=== PATIENT | male | born 1990 | race Caucasian/White ===

== ENCOUNTER 2020-08-31 20:35 | Emergency (ER) | payer MEDICAID, SELFPAY ==
--- NOTE | ~2020-08-31 | US_ITS ---
EXAMINATION: US scrotum doppler DATE: 08/31/2020 21:48 INDICATION: Right testicular pain. TECHNIQUE: Grayscale and Doppler ultrasound images of the testes were obtained. COMPARISON: None. FINDINGS: The right testis measures 4.8 x 3.1 x 2.6 cm. The left testis measures 3.5 x 2.7 x 2.4 cm. There is normal vascular flow to both testes. The right epididymis is normal with normal vascular melva w. The left epididymis is normal with normal vascular flow. There is no varicocele or hydrocele. IMPRESSION: 1. Normal testes. Reviewed, dictated and finalized at location A. IMPRESSION: 1. Normal testes.
[2020-08-31 20:44] VITALS: BP 134/84; PULSE 96; RESP 18; TEMP 36.4; O2SAT 96
--- NOTE | 2020-08-31 20:49 | ED.GENADULT ---
HPI - General Adult General Chief complaint: Urogenital-Male Stated complaint: right testicular pain Time Seen by Provider: 08/31/20 20:40 Source: RN notes reviewed History of Present Illness HPI narrative: Patient presents emergency department from home for right testicular pain. Patient states pain began yesterday with mild aching and is progressively worsened today pain is located in the right groin and radiates in the right lower abdomen described as aching in nature patient has associated dysuria denies any fevers or chills abdominal pain nausea or vomiting urethral discharge or any other symptoms states he took no pain medication today Related Data Allergies Allergy/AdvReac Type Severity Reaction Status Date / Time No Known Allergies Allergy Verified 08/31/20 21:07 Review of Systems Review of Systems: Narrative: Gen.: Denies fevers or chills ENT: Denies congestion Respiratory: Denies shortness of breath or cough CV: Denies chest pain or palpitations GI: Denies abdominal pain nausea, emesis or diarrhea see HPI Musculoskeletal: Denies back pain or muscle pain Neuro: Denies numbness, tingling, weakness or focal weakness Skin: Denies rash Except as documented, all other systems reviewed and negative FORMERLY [facility], [facility] Past Medical History Medical History (Updated 08/31/20 @ 22:45 by Ronn Cotton DO) Patient denies significant medical history Social History Social History (Updated 08/31/20 @ 20:49 by Ronn Cotton DO) Smoking status: Current every day smoker Exam Narrative: Exam Narrative: APPEARANCE: No acute distress, nontoxic, resting in bed EYES: EOMI HEENT: Normocephalic, atraumatic, OMM RESPIRATORY: No respiratory distress Clear to auscultation bilaterally with no rhonchi wheezing or rales. CARDIOVASCULAR: Regular rate and rhythm without murmurs rubs or gallops. ABDOMINAL: Soft, nontender, nondistended, no rebound or guarding : Normal circumcised male no scrotal swelling or erythema the right testicle is tender to palpation no tenderness over the left testicle MUSCULOSKELETAl: Moves all extremities. No clubbing, cyanosis or edema. NEURO: Awake and alert. Following commands, speech normal, no focal deficits SKIN:: Warm, dry. No rashes lesions or abrasions PSYCHIATRIC: Normal affect/mood, Course Course Emergency Course: Following the patient's ultrasound and when to really evaluate the patient as the patient has had negative ultrasound discussed with patient ordering CT scan to rule out kidney stone patient agreement at this time Patient has eloped from the facility cannot be found in waiting room or in ED Vital Signs Vital signs: Vital Signs Temperature 97.6 F 08/31/20 20:44 Pulse Rate 96 08/31/20 20:44 Respiratory Rate 18 08/31/20 20:44 Blood Pressure 134/84 08/31/20 20:44 Pulse Oximetry 96 08/31/20 20:44 Temperature 97.6 F 08/31/20 20:44 Pulse Rate 96 08/31/20 20:44 Respiratory Rate 18 08/31/20 20:44 Blood Pressure 134/84 08/31/20 20:44 Pulse Oximetry 96 08/31/20 20:44 Medical Decision Making Vital Signs Vital Signs: Vital Signs Temperature 97.6 F 08/31/20 20:44 Pulse Rate 96 08/31/20 20:44 Respiratory Rate 18 08/31/20 20:44 Blood Pressure 134/84 08/31/20 20:44 Pulse Oximetry 96 08/31/20 20:44 Temperature 97.6 F 08/31/20 20:44 Pulse Rate 96 08/31/20 20:44 Respiratory Rate 18 08/31/20 20:44 Blood Pressure 134/84 08/31/20 20:44 Pulse Oximetry 96 08/31/20 20:44 Lab Data Labs: Lab Results 08/31/20 Range/Units 21:02 Urine Color Yellow (Yellow) Urine Appearance Clear (Clear) Urine pH 6.0 (5.0-9.0) Ur Specific [place] 1.021 (1.001-1.035) Urine Protein Negative (Negative) mg/dL Urine Glucose (UA) Negative (Negative) mg/dL Urine Ketones Negative (Negative) mg/dL Ur Blood (Man) 1+ H (Negative) Urine Nitrate Negative (Negative) Urine Bilirubin Negative (Negative) Urine Uro
[2020-08-31] MEDS: HYDROcodone/acetaminophen (*CRX) 5-325 MG TABLET 1 TAB PO (21:06)
[2020-08-31 21:13] LABS: Add Urine Microscopic? YES; Appearance Urine Clear (Clear); Bilirubin Urine Negative (Negative); Blood Urine 1+ (Negative); Color Urine Yellow (Yellow); Glucose Urine UA Negative (Negative); Ketones Urine Negative (Negative); Leukocyte Esterase Ur Negative LEU/UL (Negative); Mucus Urine Rare /lpf; Nitrate Urine Negative (Negative); Protein Urine Negative (Negative); RBC Urine 0-2 /hpf (0-2); Specific Grav Ur 1.021 (1.001-1.035); WBC Urine 0-3 /hpf
== END 2020-08-31 22:18 | disposition left against medical advice (07) ==
PROVIDERS: Emergency Provider Emergency Medicine
DX: N50.811 Right testicular pain (principal); F17.200 Nicotine dependence, unspecified, uncomplicated
CPT/HCPCS: 76870; 81001; 93976; 99284; A9270